=== PATIENT | female | born 1995 | race Two or more races ===

== ENCOUNTER 2018-10-17 20:30 | Emergency (ER) | payer MEDICAID ==
[~2018-10-17] VITALS: Ht 162.6 cm; Wt 63.5 kg
[2018-10-17 21:09] LABS: Basophils # (auto) 0.1 uL; Basophils % (auto) 1.2 % (0.0-2.0); Eosinophils # (auto) 0.1 uL; Eosinophils % (auto) 2.2 % (0.0-7.0); Hematocrit 39.2 % (36.0-46.0); Hemoglobin 13.2 g/dL (12.2-16.2); Lymphocytes % (auto) 46.8 % (10.0-50.0); Mean Corpuscular Hemoglobin 31.3 pg (28.0-32.0); Mean Corpuscular Hgb Conc. 33.6 g/dL (32.0-36.0); Mean Corpuscular Volume 93.1 fL (80.0-100.0); Monocytes # (auto) 0.4 uL; Monocytes % (auto) 5.7 % (0.0-12.0); Neutrophils # (auto) 2.9 uL; Neutrophils % (auto) 44.1 % (37.0-80.0); Nucleated Red Blood Cells % 0.1 %; Platelet Count (auto) 340 10^3/uL (140-450); Red Cell Distribution Width 13.4 % (11.8-14.3); White Blood Cell 6.5 10^3/uL (4.4-10.8)
[2018-10-17 21:27] LABS: Potassium 3.9 mmol/L (3.5-5.1)
[2018-10-17 21:30] LABS: Calcium 8.4 mg/dL (8.5-10.1)
[2018-10-17 21:36] LABS: Bilirubin, Total 0.2 mg/dL (0.2-1.0); Total Protein 7.2 g/dL (6.4-8.2)
[2018-10-17 21:37] LABS: INR 0.93 (0.9-1.15); Partial Thromboplastin Time 28.2 sec (23.78-33.04)
[2018-10-18 01:35] VITALS: BP 136/68
== END 2018-10-18 03:03 | disposition home or self-care (01) ==
LOC: ER 20:33
DX: Z90.49 Acquired absence of other specified parts of digestive tract (principal)
CPT/HCPCS: 36415; 71046; 80053; 81025; 84484; 85025; 85610; 85730; 93005

== ENCOUNTER 2020-04-18 13:31 | Emergency (ER) | payer MEDICAID ==
[~2020-04-18] VITALS: Ht 162.6 cm; Wt 65.3 kg
[2020-04-18 13:43] VITALS: BP 109/47
[2020-04-18] MEDS ORDERED: KETOROLAC TROMETH 60MG/2ML VIAL IM ONE (17:15)
== END 2020-04-18 17:19 | disposition home or self-care (01) ==
LOC: ER 13:31
DX: S29.011A Strain of muscle and tendon of front wall of thorax, initial encounter (principal); X50.9XXA Other and unspecified overexertion or strenuous movements or postures, initial encounter; Y93.89 Activity, other specified; Y92.89 Other specified places as the place of occurrence of the external cause; Y99.8 Other external cause status
CPT/HCPCS: J1885